=== PATIENT | female | born 1985 | race Native Hawaiian/Other Pacific Islander ===

== ENCOUNTER 2018-09-12 14:44 | Emergency (ER) | payer OTHER ==
[~2018-09-12] VITALS: Ht 165.1 cm; Wt 114.3 kg
[2018-09-12 14:52] VITALS: TEMP 97.5
[2018-09-12] MEDS ORDERED: LEVO0.1224 PO (15:08)
[2018-09-12 18:19] VITALS: BP 126/74
== END 2018-09-12 18:18 | disposition home or self-care (01) ==
LOC: ED 14:44
PROC: 0HQ0XZZ Repair Scalp Skin, External Approach (ICD-10-PCS; principal; 2018-09-12)
DX: S01.01XA Laceration without foreign body of scalp, initial encounter (principal); S00.83XA Contusion of other part of head, initial encounter; W11.XXXA Fall on and from ladder, initial encounter; Y92.89 Other specified places as the place of occurrence of the external cause
CPT/HCPCS: 90471; 90715; 99283; J1885